=== PATIENT | male | born 1975 | race Caucasian/White ===

== ENCOUNTER 2018-05-15 12:15 | Emergency (ER) | payer OTHER ==
[~2018-05-15] VITALS: Ht 172.7 cm; Wt 106.4 kg
[2018-05-15 12:45] VITALS: BP 155/105
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
[2018-05-15] MEDS ORDERED: HYDROcodone/APAP 10/325 MG 1 TAB TAB PO ONE (14:15)
[2018-05-15 14:28] VITALS: BP 138/87
--- NOTE | 2018-05-15 14:28 | NUR ---
Patient discharged with v/s stable. Written and verbal after care instructions given and explained. Patient alert, oriented and verbalized understanding of instructions. Ambulatory with steady gait. All questions addressed prior to discharge. ID band removed. Patient advised to follow up with PMD. Rx of ULTRAM given. Patient educated on indication of medication including possible reaction and side effects. Opportunity to ask questions provided and answered.
== END 2018-05-15 14:28 | disposition home or self-care (01) ==
LOC: MED 12:15
DX: S62.314A Displaced fracture of base of fourth metacarpal bone, right hand, initial encounter for closed fracture (principal); W23.0XXA Caught, crushed, jammed, or pinched between moving objects, initial encounter; Y93.89 Activity, other specified; Y92.89 Other specified places as the place of occurrence of the external cause; Y99.8 Other external cause status
CPT/HCPCS: 73130; 99283

== ENCOUNTER 2018-08-17 09:06 | Emergency (ER) | payer OTHER ==
[~2018-08-17] VITALS: Ht 175.3 cm; Wt 103.0 kg
[2018-08-17 09:31] VITALS: BP 133/86
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
--- NOTE | 2018-08-17 11:21 | NUR ---
pt resting on bed'; no acute distress noted;will continue to monitoer.
[2018-08-17] MEDS ORDERED: METOCLOPRAMIDE 10 MG/2 ML INJ VIAL ONE (12:07)
[2018-08-17] MEDS ORDERED: FAMOTIDINE 20 MG/2 ML VIAL ONE (12:08)
[2018-08-17] MEDS ORDERED: KETOROLAC 30 MG/ML VIAL ONE (12:08)
--- NOTE | 2018-08-17 12:22 | NUR ---
PT SIGNED CONSENT FOR CT SCAN W/ CONTRATS;
--- NOTE | 2018-08-17 13:45 | NUR ---
pt resting on bed; verbalizes relief from pain;no facial grimmacing.
--- NOTE | 2018-08-17 13:56 | NUR ---
NO ACUTE DISTRESS NOTED; MONITORS IN PLACED.
[2018-08-17 14:36] LABS: BASOPHILS % (AUTO) 0.8 % (0.0-2.0); EOSINOPHILS % (AUTO) 1.5 % (0.0-4.0); HEMATOCRIT 44.6 % (36-52); HEMOGLOBIN 14.6 g/dL (12.0-18.0); LYMPHOCYTES % (AUTO) 18.9 % (20.5-51.1); MEAN CORPUSCULAR HEMOGLOBIN 29 pg (27-31); MEAN CORPUSCULAR HGB CONC 33 g/dL (33-37); MEAN CORPUSCULAR VOLUME 88.4 fL (80-94); MONOCYTES % (AUTO) 8.5 % (1.7-9.3); NEUTROPHILS % (AUTO) 70.3 % (42.2-75.2); PLATELET COUNT (AUTO) 355 K/uL (140-450); RED BLOOD CELL COUNT(AUTO) 5.05 MIL/uL (4.20-6.10); WHITE BLOOD COUNT (AUTO) 6.3 K/uL (4.8-10.8)
[2018-08-17 14:37] LABS: ANION GAP 9.2 (8-16); CARBON DIOXIDE 30.2 mmol/L (21-32); EOSINOPHILS # (AUTO) 0.1 K/uL (0-0.4); LYMPHOCYTES # (AUTO) 1.2 K/uL (2.0-11.5); MONOCYTES # (AUTO) 0.5 K/uL (0.8-1.0); NEUTROPHILS # (AUTO) 4.4 K/uL (1.8-7.7); POTASSIUM 4.4 mmol/L (3.5-5.1)
[2018-08-17 14:38] LABS: ALBUMIN 3.8 g/dL (3.4-5.0); CREATININE 0.9 mg/dL (0.7-1.3); TOTAL BILIRUBIN 0.6 mg/dL (0.0-1.0)
[2018-08-17 14:47] LABS: PROTHROMBIN TIME 10.3 secs (10.8-13.4)
[2018-08-17] MEDS ORDERED: NACL 0.9% 1,000 ML IV ONE (16:15)
[2018-08-17 16:18] LABS: BARBITURATE, URINE NEG. ng/ml (NEG <=200); BENZODIAZEPINE, URINE NEG. ng/mL (NEG <=200); CANNABINOID, URINE NEG. ng/mL (NEG <=50); COCAINE, URINE NEG. ng/mL (NEG <=300); OPIATE, URINE NEG. ng/mL (NEG <=2000); PHENCYCLIDINE SCREEN,URINE NEG. ng/mL (NEG <=25)
[2018-08-17 16:41] LABS: APPEARANCE,URINE HAZY (CLEAR); BILIRUBIN,URINE NEGATIVE (NEGATIVE); BLOOD, URINE TRACE-I (NEGATIVE); COLOR,URINE YELLOW (YELLOW); LEUKOCYTE ESTERASE ,URINE NEGATIVE (NEGATIVE); NITRITE, URINE NEGATIVE (NEGATIVE); UGLUCOSE NEGATIVE (NEGATIVE)
[2018-08-17 16:46] LABS: RBC,URINE 0-5 (RARE) /HPF (0-5); WBC,URINE NONE SEEN /HPF (0-5)
[2018-08-17 17:08] VITALS: BP 140/92
== END 2018-08-17 17:08 | disposition home or self-care (01) ==
LOC: MED 09:06
DX: R10.31 Right lower quadrant pain (principal)
CPT/HCPCS: 36415; 74177; 80053; 80305; 81001; 82150; 83690; 85025; 85610; 99284; J1885; J2765; J3490; J7030; Q9967